=== PATIENT | male | born 2000 | race African-American/Black ===

== ENCOUNTER 2024-11-07 10:40 | Emergency (ER) | payer OTHER ==
[~2024-11-07] VITALS: Ht 182.9 cm; Wt 68.3 kg
[2024-11-07 10:50] VITALS: BP 111/58; TEMP 96.9; O2SAT 100
[2024-11-07] MEDS ORDERED: CETI-24 PO (12:29)
== END 2024-11-07 12:34 | disposition home or self-care (01) ==
LOC: M ED 10:40
DX: J30.9 Allergic rhinitis, unspecified (principal)

== ENCOUNTER → 2025-01-11 | Outpatient (REF) | payer OTHER ==
[~2025-01-11] MED LIST: CETI-24 PO
[2025-01-11 16:43] LABS: Trichomonas vaginalis (AMP) NOT DETECTED (NEGATIVE)
[2025-01-11 17:07] LABS: GC DNA AMPLIFICATION NEGATIVE (NEGATIVE)
== END ==
LOC: M LAB REF 14:44
PROVIDERS: ATTEND Physician Assistant
DX: R30.0 Dysuria (principal)